=== PATIENT | male | born 1995 | race Caucasian/White ===

== ENCOUNTER 2021-09-30 13:27 | Emergency (ER) | payer OTHER ==
[~2021-09-30] VITALS: Ht 190.5 cm; Wt 113.6 kg
[2021-09-30] MEDS ORDERED: TETanus/Pertussis (Acell)/Diphther VAC/PF (Tdap-Adult) 0.5ml syringe IMVAC ONE (13:45)
[2021-09-30] MEDS ORDERED: ceFAZolin 1gm IM kit IM ONE (13:45)
[2021-09-30 14:51] LABS: CLARITY,URINE CLEAR (Clear); COLOR,URINE YELLOW (Yellow); GLUCOSE, URINE NEGATIVE (Neg); KETONES,URINE >=80 mg/dl (Neg); LEUKOCYTE ESTERASE ,URINE NEGATIVE (Neg); NITRITES, URINE NEGATIVE (Neg); OCCULT BLOOD,URINE NEGATIVE (Neg); PROTEIN,URINE NEGATIVE (Neg); UROBILINOGEN,URINE 0.2 E.U/dL (0.2-1.0)
[2021-09-30 14:53] LABS: UA COLLECTION TYPE CLN CATCH MIDSTREAM
[2021-09-30 16:59] VITALS: BP 145/88
[2021-09-30] MEDS ORDERED: LIDOcaine 1% 30ml preserv. free vial IJ STA (18:00)
[2021-09-30] MEDS ORDERED: morphine 4 MG/ML inj SYRINge IV ONE (18:10)
[2021-09-30] MEDS ORDERED: ONDA4TAB6 PO (18:41)
[2021-09-30] MEDS ORDERED: CEPH250T PO (18:41)
[2021-09-30] MEDS ORDERED: HYDR-3965 PO (18:41)
[2021-09-30] MEDS ORDERED: bacitracin 15gm ointment TP ONE (18:45)
== END 2021-09-30 18:58 | disposition home or self-care (01) ==
LOC: ER 13:28
DX: S31.31XA Laceration without foreign body of scrotum and testes, initial encounter (principal); W19.XXXA Unspecified fall, initial encounter; Y93.89 Activity, other specified; Y92.89 Other specified places as the place of occurrence of the external cause; Y99.8 Other external cause status
CPT/HCPCS: 76870; 81003; 90471; 90715; 93976; 96372; 96374; 99285; J0690; J2270